=== PATIENT | male | born 1975 | race Caucasian/White ===

== ENCOUNTER 2023-11-18 10:15 | Outpatient (CLI) | payer OTHER, SELFPAY | END 2023-11-18 10:16 | disposition home or self-care (01) | PROVIDERS: Visit Provider Family Medicine | DX: Z00.00 Encounter for general adult medical examination without abnormal findings (principal); E78.5 Hyperlipidemia, unspecified; E88.810 Metabolic syndrome; Z13.1 Encounter for screening for diabetes mellitus | CPT/HCPCS: 80048; 80061 ==